=== PATIENT | female | born 1995 | race Caucasian/White ===

== ENCOUNTER 2018-05-02 19:38 | Emergency (ER) | payer SELFPAY ==
[2018-05-02 19:51] VITALS: O2SAT 100
--- NOTE | 2018-05-02 21:16 | C.PDOC ---
History Of Present Illness 22 y/o female comes in complaining of a sudden onset of lower abdominal pain since 3pm today. States shes been having nausea and vomiting since. Patient feels uncomfortable but denies fever, chills, or diarrhea. LMP: 04/04/18. Time Seen by Provider: 05/02/18 21:00 Chief Complaint (Nursing): Abdominal Pain History Per: Patient History/Exam Limitations: no limitations Onset/Duration Of Symptoms: Hrs Current Symptoms Are (Timing): Still Present Past Medical History Reviewed: Historical Data, Nursing Documentation, Vital Signs Vital Signs: Last Vital Signs Temp 98.7 F 05/02/18 19:47 Pulse 73 05/02/18 19:47 Resp 18 05/02/18 19:47 BP 150/84 05/02/18 19:47 Pulse Ox 100 05/02/18 19:47 Family History: States: No Known Family Hx - Social History Hx Alcohol Use: No Hx Substance Use: No - Immunization History Hx Tetanus Toxoid Vaccination: No Hx Influenza Vaccination: No Hx Pneumococcal Vaccination: No Review Of Systems Constitutional: Negative for: Fever, Chills Cardiovascular: Negative for: Chest Pain Respiratory: Negative for: Shortness of Breath Gastrointestinal: Positive for: Nausea, Vomiting, Abdominal Pain. Negative for: Diarrhea Skin: Negative for: Rash Physical Exam - Physical Exam Appears: Non-toxic, Other (Uncomfortable) Skin: Warm, Dry Head: Atraumatic, Normacephalic Eye(s): bilateral: Normal Inspection, PERRL, EOMI Oral Mucosa: Moist Neck: Supple Chest: Symmetrical Cardiovascular: Rhythm Regular, No Murmur Respiratory: Normal Breath Sounds, No Rales, No Rhonchi, No Wheezing Gastrointestinal/Abdominal: Bowel Sounds (Quiet), Tenderness (localized tenderness to LLQ), Guarding, No Rebound Extremity: Bilateral: Atraumatic, Normal Color And Temperature, Normal ROM Neurological/Psych: Oriented x3, Normal Speech ED Course And Treatment - Laboratory Results Result Diagrams: 05/02/18 22:24 05/02/18 22:23 Lab Interpretation: Abnormal (WBC 17.3) O2 Sat by Pulse Oximetry: 100 (RA) Pulse Ox Interpretation: Normal Progress Note: Patient treated with IV fluids, Zofran and Bentyl Reevaluation Time: 23:32 Reassessment Condition: Improved (Patient states she is pain free with no further nausea. Abdomen is soft and nontender.) Medical Decision Making Medical Decision Making: Plan: --Bloodwork --UA Disposition Counseled Patient/Family Regarding: Studies Performed, Diagnosis, Need For Followup, Rx Given - Disposition Referrals: [facility] [Outside] Disposition: HOME/ ROUTINE Disposition Time: 23:34 Condition: IMPROVED Prescriptions: Ondansetron ODT [Zofran ODT] 1 odt PO QID PRN #10 odt PRN Reason: Nausea/Vomiting Instructions: Nausea and Vomiting, Adult, Acute Abdomen (Belly Pain), Adult (DC) Forms: Viveve (Turkish) - Clinical Impression Clinical Impression: Abdominal pain, Vomiting, Nausea - Scribe Statement The provider has reviewed the documentation as recorded by the Fransisco Lozano Provider Attestation: All medical record entries made by the Fransisco were at my direction and personally dictated by me. I have reviewed the chart and agree that the record accurately reflects my personal performance of the history, physical exam, medical decision making, and the department course for this patient. I have also personally directed, reviewed, and agree with the discharge instructions and disposition.
[2018-05-02] MEDS ORDERED: Sodium Chloride 0.9% 1,000 ML IV ONE ×2 (21:21→22:40)
[2018-05-02 22:26] LABS: BASO % 0.2 % (0.0-2.0); HEMOGLOBIN 14.1 g/dL (11.0-16.0); LYMPH % 5.5 % (20.0-40.0); MEAN CELL VOLUME 83.3 fL (81.0-99.0); MEAN CORPUSCULAR HEMOGLOBIN 27.8 pg (27.0-31.0); MEAN CORPUSCULAR HGB CONC 33.3 g/dL (33.0-37.0); MEAN PLATELET VOLUME 7.5 fL (7.2-11.7); MONO # 0.2 K/uL (0.0-0.8); MONO % 1.4 % (0.0-10.0); NEUT % 92.9 % (50.0-75.0); PLATELET COUNT 492 K/uL (130-400); RBC 5.08 Mil/uL (3.80-5.20); RED CELL DISTRIBUTION WIDTH 14.2 % (11.5-14.5); WHITE BLOOD COUNT 17.3 K/uL (4.8-10.8)
[2018-05-02 22:36] LABS: HCG,QUALITATIVE URINE NEGATIVE (NEGATIVE); SQUAMOUS EPITHIAL 3 /hpf (0-5); URINE BACTERIA OCC (<OCC); URINE BILIRUBIN NEGATIVE (NEGATIVE); URINE BLOOD 1+ (NEGATIVE); URINE CLARITY Clear (Clear); URINE COLOR Yellow (YELLOW); URINE GLUCOSE (UA) NORMAL (Normal); URINE LEUKOCYTE ESTERASE NEG Leu/uL (Negative); URINE PROTEIN 1+ mg/dL (NEGATIVE); URINE UROBILINOGEN NORMAL mg/dL (0.2-1.0)
[2018-05-02 22:42] LABS: ALB/GLOB RATIO 1.4 (1.0-2.1); ALBUMIN 4.7 g/dL (3.5-5.0); ALT/SGPT 25 U/L (9-52); AST/SGOT 19 U/L (14-36); BLOOD UREA NITROGEN 14 mg/dL (7-17); CALCIUM 9.6 mg/dl (8.6-10.4); GFR NON-AFRICAN AMERICAN > 60; LIPASE 71 U/L (23-300)
[2018-05-03 02:13] LABS: LYMPHOCYTE 3 % (20-40); MONOCYTE 1 % (0-10); NEUTROPHIL 96 % (50-75); PLATELET ESTIMATE INCREASED (NORMAL); TOTAL CELLS COUNTED 100
[2018-05-03 02:46] VITALS: BP 118/75; PULSE 82; RESP 20; TEMP 98.6
== END 2018-05-02 23:55 | disposition home or self-care (01) ==
LOC: C.ER 19:38
DX: R10.32 Left lower quadrant pain (principal); R11.2 Nausea with vomiting, unspecified
CPT/HCPCS: 80053; 81001; 83690; 84702; 84703; 85025; 96361; 96372; 96374; 99284; J0500; J2405; J7030